=== PATIENT | female | born 2000 | race African-American/Black ===

== ENCOUNTER 2021-08-20 21:24 | Emergency (ER) | payer OTHER ==
[2021-08-20 21:39] VITALS: BP 126/71; PULSE 92; TEMP 98.6; BMI 25.1
[2021-08-20] MEDS ORDERED: KETOROLAC TROMETHAMINE 15 MG/ML VIAL IM ONE (22:23)
[2021-08-20] MEDS ORDERED: DEXAMETHASONE LIQUID 0.5 MG/5 ML PO ONE (22:23)
[2021-08-20] MEDS ORDERED: KETOROLAC TROMETHAMINE 15 MG/ML VIAL ONE (22:29)
[2021-08-20] MEDS ORDERED: DEXAMETHASONE SOD PHOSPHATE 10 MG/1 ML VIAL ONE (22:29)
[2021-08-20 23:53] LABS: THROAT:GRP A STREP NOT DETECTED (NOTDETECTED)
== END 2021-08-20 23:00 | disposition home or self-care (01) ==
LOC: JER 21:24
PROC: 3E023GC Introduction of Other Therapeutic Substance into Muscle, Percutaneous Approach (ICD-10-PCS; principal; 2021-08-20)
DX: R07.0 Pain in throat (principal)
CPT/HCPCS: 0241U-QW; 87651; 99284-25